=== PATIENT | male | born 1935 | race Caucasian/White ===

== ENCOUNTER → 2019-12-17 | Outpatient (CLI) | payer MEDICARE, BC ==
[~2019-12-17] MED LIST: AMOXICILLIN 8751 TAB PO; ASPI325T6 PO; ASPIRIN 81M81 MG/TA2 PO; ASPIRIN E.C. 8181 MG PO; Advair Diskus 250-50 INH; CARDI-OMEGA1000 MG PO; CARDIZEM 90MG T90 MG PO; CARDIZEM CD360 MG PO; CARTIA XT180 MG PO; COUMADIN 22.5 MG/TAB PO; COUMADIN 2MG2 MG/TAB PO; COUMADIN 5MG5 MG/TAB PO; COUMADIN4 MG PO; COZAAR100 MG PO; DAILY MULTIPLE1 T19 PO; DOXYCYCLINE 10100 MG PO; FLEXERIL 1010 MG/TAB PO; FLOMAX 0.40.4 MG/CAP PO; INVANZ INJ1 G/VIAL IJ; IRON324 MG PO; LIPITOR 40MG TA40 MG PO; LOPRESSOR 225 MG/TAB PO; LOVENOX 8080 MG/0.8 SQ; MEFOXIN PO; NIACOR500 MG PO; NITROSTAT0.4 MG/TAB SL; NORCO 325 MG-51 TAB PO; NORCO 325 MG-7.1 TAB; NORCO 325 MG-7.1 TAB PO; OMEGA-3 FISH1200 MG PO; PACERONE100 MG PO; PACERONE200 MG PO; RT ADVAIR 228 DISKUS IH; SENOKOT8.6 MG PO; ULTRAM 50MG TAB50 MG PO; VITAMINC1000TA PO; ZANTAC 150150 MG; ZANTAC 150MG T150 MG PO
== END ==
LOC: COL.RAD 13:45
DX: M25.511 Pain in right shoulder (principal)
CPT/HCPCS: J3301; Q9967